=== PATIENT | male | born 1990 ===

== ENCOUNTER 2016-11-20 13:31 | Emergency (ER) | payer OTHER ==
[2016-11-20 14:32] VITALS: BP 131/83
[2016-11-20] MEDS ORDERED: Acetaminophen TAB* 325 MG PO ONE (14:44)
--- NOTE | 2016-11-20 14:51 | UC ---
Minor Trauma HPI - HPI Summary HPI Summary: 26 yo male slipped on ice at work twisted his back and landed on right knee no bowel/bladder dysfunction occurred about 3 AM - History of Current Complaint Chief Complaint: UCLowerExtremity Stated Complaint: BACK INJURY Time Seen by Provider: 11/20/16 14:36 Hx Obtained From: Patient Onset/Duration: Gradual Onset Onset Of Pain: Immediate Severity Initially: Moderate Severity Currently: Moderate Pain Intensity: 6 Pain Scale Used: 0-10 Numeric Mechanism Of Injury: Fall From A Standing Position Aggravating Factor(s): Ambulation Alleviating Factor(s): Rest - Allergies/Home Medications Allergies/Adverse Reactions: Allergies Allergy/AdvReac Type Severity Reaction Status Date / Time No Known Allergies Allergy Verified 02/10/13 20:06 Home Medications: Home Medications Aleve 2 tab PO PRN 11/20/16 [History] Zolpidem TAB* [Ambien*] 11/20/16 [History] PMH/Surg Hx/FS Hx/Imm Hx Previously Healthy: Yes Endocrine History Of: Reports: Thyroid Disease - POSSIBLE HYPO-CURRENTLY BEING EVALUATED Denies: Diabetes Cardiovascular History Of: Denies: Cardiac Disorders, Hypertension Respiratory History Of: Denies: COPD, Asthma GI/ History Of: Denies: Ulcer - Surgical History Surgical History: Yes Surgery Procedure, Year, and Place: LEFT KNEE - Family History Known Family History: Negative: Cardiac Disease, Hypertension, Diabetes - Social History Alcohol Use: Rare Substance Use Type: None Smoking Status (MU): Never Smoked Tobacco Review of Systems Constitutional: Negative Skin: Negative Eyes: Negative ENT: Negative Respiratory: Negative Cardiovascular: Negative Gastrointestinal: Negative Genitourinary: Negative Motor: Negative Neurovascular: Negative Musculoskeletal: Arthralgia Neurological: Negative Psychological: Negative All Other Systems Reviewed And Are Negative: Yes Physical Exam Triage Information Reviewed: Yes Appearance: Well-Appearing, No Pain Distress, Well-Nourished Vital Signs: Initial Vital Signs Temp 98.9 F 11/20/16 14:28 Pulse 71 11/20/16 14:28 Resp 18 11/20/16 14:28 BP 131/83 11/20/16 14:28 Pulse Ox 98 11/20/16 14:28 Eyes: Positive: Conjunctiva Clear ENT: Positive: Hearing grossly normal. Negative: Nasal drainage, Trismus, Muffled/hoarse voice Dental: Negative: Gross Decay/Caries @, Abscess @ Neck: Positive: Nontender, No Lymphadenopathy Respiratory: Positive: Lungs clear, Normal breath sounds, No respiratory distress Cardiovascular: Positive: RRR, No Murmur Musculoskeletal: Positive: Other: - see image Neurological: Positive: Alert Psychological Exam: Normal Skin Exam: Normal Minor Trauma Course/Dx - Differential Dx/Diagnosis Provider Diagnoses: lumbar myofascial strain/spasm. right knee contusion Discharge - Discharge Plan Condition: Stable Disposition: HOME Prescriptions: Cyclobenzaprine TAB* [Flexeril TAB*] 10 mg PO TID PRN #6 tab PRN Reason: Spasms - Back Patient Education Materials: Low Back Strain (ED), Contusion in Adults (ED) Referrals: Guicho ZARAGOZA,Valentino Roper [Primary Care Provider] - Additional Instructions: ice knee twice daily aleve 2 twice daily with food for pain don't take flexeril and drive or work return Sat for recheck if you feel you will be unable to work Images Front/Back of Body, Lg ([place]): 1 - tender here/pain with flexion/twisting, (-) SLR,. normal gait 2 - tender superior patella. able to fully extend leg
--- NOTE | 2016-11-20 15:15 | RAD ---
INDICATION: Right knee injury COMPARISON: None TECHNIQUE: AP, lateral, tunnel, and sunrise were obtained. FINDINGS: The bony structures, joint spaces, and soft tissues are normal for age. IMPRESSION: NEGATIVE EXAMINATION.
== END 2016-11-20 15:12 | disposition home or self-care (01) ==
LOC: UCEAST 13:31
DX: S39.012A Strain of muscle, fascia and tendon of lower back, initial encounter (principal); S80.01XA Contusion of right knee, initial encounter; W00.0XXA Fall on same level due to ice and snow, initial encounter; Y93.9 Activity, unspecified; Y92.9 Unspecified place or not applicable
CPT/HCPCS: 99202; A9270-GY; G0463